=== PATIENT | female | born 1950 | race Caucasian/White ===

== ENCOUNTER 2021-11-18 15:22 | Emergency (ER) | payer MEDICARE, OTHER ==
[~2021-11-18 15:22] MED LIST: DIAZEPAM5 MG PO; GLIPIZIDE ER10 MG PO; LEVAQUIN500 MG PO; LEVOTHYROXINE88 MCG PO; MECLIZINE 25MG25 MG PO; MUCINEX 600MG600 MG PO; NORCO 5-325 TA1 EACH PO; NOVOLOG MI100 UNIT/2 SC; PANTOPRAZOLE SO40 MG PO; PENTAZOCINE-NA1 EACH PO; PHENERGAN25 M1 PO; VENTOLIN HFA IN18 GM INH
[2021-11-18 16:18] LABS: BASOPHIL 0.7 % (0-2); EOSINOPHIL 0.1 % (0-7); HGB 14.3 g/dl (12.5-16.0); MCH 31.4 pg (25.0-31.0); MCHC 33.3 g/dL (32.0-36.0); MCV 94.5 fL (78.0-100.0); MONOCYTE 8.3 % (0-12); MPV 12.2 fL (6.0-9.5); NEUTROPHIL 75.5 % (41-80); NRBC 0; PLT 204 K/uL (150-400); RBC 4.55 M/uL (4.20-5.40); RDW 13.2 % (11.5-14.0); WBC 16.1 K/uL (4.0-10.5)
[2021-11-18 16:28] LABS: INR 1.11 (0.9-1.2); PROTHROMBIN TIME 13.7 SECONDS (11.8-13.4); PTT 28.6 SECONDS (24.4-34.7)
[2021-11-18 16:41] LABS: ALBUMIN 3.5 g/dL (3.4-5.0); BILIRUBIN - TOTAL 0.8 mg/dL (0.2-1.0); CREATININE 0.9 mg/dL (0.51-0.95); GLOBULIN (CALCULATION) 4.6 g/dL; MAGNESIUM 1.4 mg/dL (1.8-2.4); POTASSIUM 3.7 mmol/L (3.5-5.1); TOTAL PROTEIN 8.1 g/dL (6.4-8.2)
== END 2021-11-18 19:47 | disposition other institution (70) ==
LOC: FER 15:22
PROVIDERS: Emergency Medicine
DX: I21.19 ST elevation (STEMI) myocardial infarction involving other coronary artery of inferior wall (principal); E11.9 Type 2 diabetes mellitus without complications; Z20.822 Contact with and (suspected) exposure to COVID-19; Z28.310 Unvaccinated for COVID-19
CPT/HCPCS: 36415; 71045; 80053; 83690; 83735; 83880; 84484; 85025; 85610; 85730; 93005; J1170; J1644; J2270; J2405; U0002

== ENCOUNTER 2021-12-07 14:01 | Emergency (ER) | payer MEDICARE, OTHER ==
[2021-12-07 15:08] LABS: BASOPHIL 1.3 % (0-2); EOSINOPHIL 2.1 % (0-7); HCT 37.7 % (37.0-47.0); HGB 12.1 g/dl (12.5-16.0); LYMPHOCYTE 29.2 % (15-48); MCH 31.3 pg (25.0-31.0); MCHC 32.1 g/dL (32.0-36.0); MCV 97.4 fL (78.0-100.0); MONOCYTE 8.2 % (0-12); MPV 12.4 fL (6.0-9.5); NEUTROPHIL 58.7 % (41-80); NRBC 0; PLT 176 K/uL (150-400); RBC 3.87 M/uL (4.20-5.40); RDW 13.1 % (11.5-14.0); WBC 9.4 K/uL (4.0-10.5)
[2021-12-07 15:23] LABS: ALBUMIN 3.3 g/dL (3.4-5.0); BILIRUBIN - TOTAL 0.3 mg/dL (0.2-1.0); BUN/CREAT RATIO (CALC) 20.7 RATIO; CREATININE 0.92 mg/dL (0.51-0.95); GLOBULIN (CALCULATION) 4.1 g/dL; POTASSIUM 4.3 mmol/L (3.5-5.1); TOTAL PROTEIN 7.4 g/dL (6.4-8.2)
== END 2021-12-07 20:00 | disposition other institution (70) ==
LOC: FER 14:01
PROVIDERS: Emergency Medicine
DX: I50.9 Heart failure, unspecified (principal); E11.9 Type 2 diabetes mellitus without complications; J44.9 Chronic obstructive pulmonary disease, unspecified; I25.10 Atherosclerotic heart disease of native coronary artery without angina pectoris; Z88.2 Allergy status to sulfonamides; Z88.5 Allergy status to narcotic agent; Z88.6 Allergy status to analgesic agent; Z91.041 Radiographic dye allergy status; Z28.311 Partially vaccinated for COVID-19
CPT/HCPCS: 36415; 71045; 80053; 83880; 84484; 85025; J1940; J2270; J2405